=== PATIENT | male | born 1945 | race Caucasian/White ===

== ENCOUNTER 2019-01-15 21:35 | Emergency (ER) | payer MEDICARE, OTHER ==
[~2019-01-15] VITALS: Ht 182.9 cm; Wt 90.8 kg
[2019-01-15 21:39] VITALS: BP 146/70
== END 2019-01-15 22:14 | disposition home or self-care (01) ==
LOC: ED 22:09
DX: E11.9 Type 2 diabetes mellitus without complications (principal); Z76.0 Encounter for issue of repeat prescription; I10 Essential (primary) hypertension
CPT/HCPCS: 82962; 99282